=== PATIENT | female | born 1980 | race Caucasian/White ===

== ENCOUNTER 2018-12-04 17:24 | Inpatient (IN) | payer OTHER ==
[~2018-12-04] VITALS: Ht 170.2 cm; Wt 70.3 kg
[~2018-12-04 17:24] MED LIST: DOXYCYCLINE HY100 MG PO; NAPROXEN500 MG PO; RHOGAM300 MCG/SY IM
[2018-12-04] MEDS ORDERED: FOLIC ACID1 MG PO (18:21)
[2018-12-04] MEDS ORDERED: PRENATAL TABLE1 EAC1 PO (18:26)
[2018-12-08] MEDS ORDERED: CELESTONE IM (10:04)
== END 2018-12-08 11:55 | disposition home or self-care (01) | DRG 818 ==
LOC: LDR 17:24 → OB/GYN 12-06 11:54
PROVIDERS: ADMIT Obstetrics & Gynecology
PROC: 4A1HXCZ Monitoring of Products of Conception, Cardiac Rate, External Approach (ICD-10-PCS; 2018-12-04)
PROC: 0UVC7ZZ Restriction of Cervix, Via Natural or Artificial Opening (ICD-10-PCS; principal; 2018-12-05 14:00)
DX: O34.32 Maternal care for cervical incompetence, second trimester (principal); O47.02 False labor before 37 completed weeks of gestation, second trimester; Z34.83 Encounter for supervision of other normal pregnancy, third trimester

== ENCOUNTER 2019-03-02 22:28 | Inpatient (IN) | payer OTHER ==
[~2019-03-02] VITALS: Ht 170.2 cm; Wt 73.5 kg
[~2019-03-02 22:28] MED LIST changes: +CELESTONE IM; +FOLIC ACID1 MG PO; +PRENATAL TABLE1 EAC1 PO
[2019-03-02] MEDS ORDERED: PROGESTERONE200 MG VAG (23:02)
== END 2019-03-05 12:28 | disposition home or self-care (01) | DRG 805 ==
LOC: LDR 22:28 → OB/GYN 22:28 → LDR 23:53 → OB/GYN 03-03 02:25
PROVIDERS: ADMIT Obstetrics & Gynecology
PROC: 4A12X4Z Monitoring of Cardiac Electrical Activity, External Approach (ICD-10-PCS; 2019-03-02)
PROC: 10E0XZZ Delivery of Products of Conception, External Approach (ICD-10-PCS; principal; 2019-03-03)
PROC: 4A033R1 Measurement of Arterial Saturation, Peripheral, Percutaneous Approach (ICD-10-PCS; 2019-03-03)
PROC: 0W8NXZZ Division of Female Perineum, External Approach (ICD-10-PCS; 2019-03-03)
DX: O60.14X0 Preterm labor third trimester with preterm delivery third trimester, not applicable or unspecified (principal); O34.33 Maternal care for cervical incompetence, third trimester; Z37.0 Single live birth; Z3A.35 35 weeks gestation of pregnancy